=== PATIENT | male | born 1985 | race Caucasian/White ===

== ENCOUNTER 2020-04-03 08:28 | Outpatient (NON) | payer OTHER, SELFPAY ==
[2020-04-03 21:51] LABS: SARS-CoV-2 RNA PCR Negative
== END 2020-04-03 08:29 ==
PROVIDERS: PCP Family Medicine; Visit Provider Family Medicine
DX: Z20.828 Contact with and (suspected) exposure to other viral communicable diseases (principal); B97.89 Other viral agents as the cause of diseases classified elsewhere; J02.8 Acute pharyngitis due to other specified organisms; R50.9 Fever, unspecified; R68.89 Other general symptoms and signs
CPT/HCPCS: 87635; C9803; U0003

== ENCOUNTER 2022-02-03 19:56 | Emergency (ER) | payer OTHER, SELFPAY ==
[2022-02-03 20:09] VITALS: BP 160/89; PULSE 82; RESP 18; TEMP 36.8; O2SAT 99
--- NOTE | 2022-02-03 20:11 | ED.GENADULT ---
HPI - General Adult General Chief complaint: Skin/Abscess/Foreign Body Stated complaint: bee sting History of Present Illness HPI narrative: Patient is a 36-year-old male who presents to the [facility] via POV for evaluation of a bee sting on left foot that occurred at approximately 530 today. Additionally, he reports moderate hives on chest prompting today's visit. He also reports erythema, swelling, and itching to left foot. with Benadryl. Denies major medical illnesses Related Data Allergies Allergy/AdvReac Type Severity Reaction Status Date / Time bee venom protein (honey bee) Allergy Swelling Verified 02/03/22 20:12 [bees] Review of Systems Review of Systems: Pertinent negatives fever, chills, sweats, change in appetite, malaise, poor p.o. intake, recent weight loss, change in appetite, myalgias, lymphadenopathy, LOC, dizziness, burning sensation, petechiae, blistering, streaking, warmth, lesions, easy bruising, lip/tongue/throat swelling, facial swelling, abdominal pain, nausea, vomiting, numbness, tingling, loss of sensation, cough, wheezing, chest pain, and heart palpitations/murmurs. PMFSH Past Medical History Medical History Elevated lipids Family History Family History Father Hypertension Family history of type 2 diabetes mellitus Sibling Hypertension Social History Social History Smoking status: Never smoker Alcohol intake: current Comments I have reviewed and agree with the patient's past medical, surgical, social, and family hx as documented by the RN. There is no relevant family history pertinent to the presenting complaint. Exam Narrative: GENERAL: Well-appearing, well-nourished, and in no acute distress. HEAD: Normocephalic, atraumatic. No facial swelling appreciated. EYES: PERRLA and EOMI. No evidence of erythema, swelling, or drainage. ENT: Nares clear, no rhinorrhea or epistaxis.Mucous membranes moist and pink. Uvula is midline without erythema and swelling. No evidence of obstruction, petechial rash, cobblestoning, lesions, ulcers, erythema, swelling, exudates, peritonsillar abscess, tenting, or drooling. Breath odor and voice normal. NECK: Supple. No Lymphadenopathy or nuchal rigidity appreciated. CHEST: Bilateral lung unger are clear to auscultation. No respiratory distress. No evidence of cough or pleuritic cp upon examination. HEART: Regular rate and rhythm. No murmur, gallop, or rub heard. EXTREMITIES: Normal range of motion. No edema. SKIN: Warm, dry. Moderate erythema and swelling to dorsal aspect of left foot. Moderate hives noted to trunk. NEURO: No focal deficits. Alert and oriented x3. SPECIAL OBSERVATIONS: Smiling. Laughing. Course Course Level of Care: Express Care Visit Vital Signs Vital signs: Vital Signs Temperature 98.3 F 02/03/22 20:09 Pulse Rate 82 02/03/22 20:09 Respiratory Rate 18 02/03/22 20:09 Blood Pressure 160/89 H 02/03/22 20:09 Pulse Oximetry 99 02/03/22 20:09 Oxygen Delivery Room Air 02/03/22 20:09 Temperature 98.3 F 02/03/22 20:09 Pulse Rate 82 02/03/22 20:09 Respiratory Rate 18 02/03/22 20:09 Blood Pressure 160/89 H 02/03/22 20:09 Pulse Oximetry 99 02/03/22 20:09 Oxygen Delivery Room Air 02/03/22 20:09 Medical Decision Making Differential Diagnosis Differential Diagnosis: Insect bite, bee sting, contact dermatitis Vital Signs Vital Signs: Vital Signs Temperature 98.3 F 02/03/22 20:09 Pulse Rate 82 02/03/22 20:09 Respiratory Rate 18 02/03/22 20:09 Blood Pressure 160/89 H 02/03/22 20:09 Pulse Oximetry 99 02/03/22 20:09 Oxygen Delivery Room Air 02/03/22 20:09 Temperature 98.3 F 02/03/22 20:09 Pulse Rate 82 02/03/22 20:09 Respiratory Rate 18 02/03/22 20:09 Blood Pressur
== END 2022-02-03 20:21 | disposition home or self-care (01) ==
PROVIDERS: Emergency Provider Nurse Practitioner Family; PCP Family Medicine
DX: T63.461A Toxic effect of venom of wasps, accidental (unintentional), initial encounter (principal)
CPT/HCPCS: 99213; G0463

== ENCOUNTER 2023-09-10 15:55 | Outpatient (CLI) | payer OTHER, SELFPAY ==
--- NOTE | ~2023-09-10 | XR_ITS ---
XR knee LT 3V 09/10/2023 17:11 Indication: Left knee pain Procedure: 3 views left knee Comparison: No prior studies for comparison. Findings: No fracture or traumatic malalignment. Mild prepatellar soft tissue swelling. No joint effu jennifer. No foreign bodies. Impression: 1: Mild prepatellar soft tissue swelling. Reviewed, dictated and finalized at location A. Impression: 1: Mild prepatellar soft tissue swelling.
--- NOTE | ~2023-09-10 | US_ITS ---
EXAMINATION: US venous doppler [facility] DATE: 09/10/2023 16:37 INDICATION: Left lower limb pain and swelling. TECHNIQUE: Grayscale ultrasound images without and with compression and Doppler ultrasound images of the left lower extremity veins were obtained. COMPARISON: None. FINDINGS: The visualized portions of left common femoral vein, profunda (deep) femoral vein, femoral vein, popl iteal vein, peroneal veins, posterior tibial veins, and greater saphenous vein outflow are patent. IMPRESSION: 1. No deep venous thrombosis. Reviewed, dictated and finalized at location A.
[2023-09-17 10:58] LABS: Factor V (Leiden) Mutation POSITIVE
== END 2023-09-10 15:56 | disposition home or self-care (01) ==
PROVIDERS: PCP Family Medicine; Visit Provider Nurse Practitioner Adult Health
DX: M79.89 Other specified soft tissue disorders (principal); Z83.2 Family history of diseases of the blood and blood-forming organs and certain disorders involving the immune mechanism
CPT/HCPCS: 36415; 73562; 81241; 93971

== ENCOUNTER 2024-10-04 17:40 | Outpatient (CLI) | payer OTHER, SELFPAY ==
--- NOTE | ~2024-10-04 | XR_ITS ---
Right Hand Technique: PA, oblique, and lateral views were obtained. Clinical History: Effusion Findings: No acute fracture or dislocation is seen. Osseous alignment is anatomic. Joint spaces are p reserved. Soft tissues are unremarkable. Impression: Unremarkable right hand. Reviewed, dictated and finalized at location M. Impression: Unremarkable right hand.
--- OUTSIDE RECORDS SUMMARY | 2024-10-04 18:15 | XMS_ITS | Clinical Summary ---
Author Organization [facility] Dino Mendezmally Address [address] [place] [address] Care Team Providers Care Shell Assembler Name Role Phone Garrison Lemos MD Primary Care Provider [phone] Allergies No known active allergies Medications aspirin (MICHELLE CHEWABLE) 81 mg Tablet, Chewable Take 81 mg by mouth daily. When patient remembers to take Active Active Problems No known active problems Encounters Date Type Department Care Team Description 08/24/2024 External Device Data [facility] ABSTRACTION Provider, Abstract 08/03/2024 External Device Data [facility]STRACTION Provider, Abstract 07/22/2024 External Device Data [facility] ABSTRACTION Provider, Abstract from Last 3 Months Family History Medical History Relation Name Comments Hyperlipidemia Brother 1 rommel Pancreatic Cancer Brother 1 rommel Hyperlipidemia Brother 2 sanjiv No Known Problems Daughter acosta High Cholesterol Father Hypertension Father Clotting Disorder Mother Cancer - Other Sister suly Skin Cancer Sister suly No Known Problems Son monae Relation Name Status Comments Brother 1 rommel Alive Brother 2 sanjiv Alive Daughter acosta Alive Father Alive Mother Alive Sister suly Alive Son monae Alive Social History Tobacco Use Types Packs/Day Years Used Date Smoking Tobacco: Never Smokeless Tobacco: Never Tobacco Cessation:Counseling Given: Not Answered Alcohol Use Standard Drinks/Week Comments Not Currently 0 (1 standard drink = 0.6 oz pur e alcohol) socially Sex and Gender Information Value Date Recorded Sex Assigned at Not on file Legal Sex Male 11:44 AM CDT Gender Identity Not on file Sexual Orientation Not on file Last Filed Vital Signs Vital Sign Reading Time Taken Comments Blood Pressure 126/71 11/12/2023 2:24 PM CDT Pulse 71 11/12/2023 2:24 PM CDT Temperature 36.7 C (98 F) 11/12/2023 2:24 PM CDT Respiratory Rate 18 11/12/2023 2:24 PM CDT Oxygen Saturation 95% 11/12/2023 2:24 PM CDT Inhaled Oxygen Concentration - - Weight 88.9 kg (196 lb) 11/12/2023 2:24 PM CDT Height 177.8 cm (5' 10 ) 11/12/2023 2:24 PM CDT Body Mass Index 28.12 11/12/2023 2:24 PM CDT Plan of Treatment Upcoming Encounters Date Type Department Care Team (Late st Contact Info) Description 11/11/2024 3:30 PM CDT Office Visit [facility] - [place] [address] [facility] [address] [place] [address] Brijesh Ho MD [address] [place] [address] Health Maintenance Due Date Last Done Comments Pre-Diabetes and Diabetes Screening 1983 DTAP/TDAP/TD VACCINES (1 - Tdap) 10/03/2002 HEPATITIS B VACCINES (1 of 3 - 19+ 3-dose series) 10/03/2002 INFLUENZA VACCINE (#1) 2024 HPV VACCINES Aged Out No longer eligi ble based on patient's age to complete this topic PNEUMOCOCCAL VACCINE 0-49 YEARS Aged Out No longer eligible based on patient's age to complete this topic Insurance [employer] OPEN ACCESS Care Teams Shell Assembler Relationship Specialty Start Date End Date Garrison Lemos MD [address] [place] [address] PCP - General Family Practice 10/16/23
== END 2024-10-04 17:41 | disposition home or self-care (01) ==
PROVIDERS: PCP Family Medicine; Visit Provider Nurse Practitioner Family
DX: M25.441 Effusion, right hand (principal)
CPT/HCPCS: 73130